=== PATIENT | female | born 1950 | race Caucasian/White ===

== ENCOUNTER 2017-11-27 17:29 | Inpatient (IN) | payer MEDICARE, MEDICAID ==
--- NOTE | 2017-11-27 17:57 | ED Physician Chart ---
ED Chief Complaint/HPI - Patient Information Date Seen:: 11/27/17 Time Seen:: 17:56 Chief Complaint:: PSYCHOSIS History of Present Illness:: THIS IS A 67 YR OLD FEMALE SENT FORM THE [facility] FOR EVALUATION AND TREATMENT OF HER MENTAL DISORDER. Allergies:: Allergies Allergy/AdvReac Type Severity Reaction Status Date / Time No Known Allergies Allergy Verified 11/27/17 17:45 Vitals:: Vital Signs - 8 hr 11/27/17 17:46 Temp 97.4 F HR 81 RR 18 BP 123/70 O2 Sat % 98 Historian:: Medical Records Review:: Nurse's Note Reviewed, Old Chart Reviewed ED Review of Systems - Review of Systems General/Constitutional: No fever, No chills, No weight loss, No weakness, No diaphoresis, No edema, No loss of appetite, Other (this patient is unable to give a review of systems) Skin: No skin lesions, No rash, No bruising Head: No headache, No light-headedness Eyes: No loss of vision, No pain, No diplopia ENT: No earache, No nasal drainage, No sore throat, No tinnitus Neck: No neck pain, No swelling, No thyromegaly, No stiffness, No mass noted Cardio Vascular: No chest pain, No palpitations, No PND, No orthopnea, No edema Pulmonary: No SOB, No cough, No sputum, No wheezing GI: No nausea, No vomiting, No diarrhea, No pain, No melena, No hematochezia, No constipation, No hematemesis G/U: No dysuria, No frequency, No hematuria Musculoskeletal: No bone or joint pain, No back pain, No muscle pain Endocrine: No polyuria, No polydipsia Psychiatric: No prior psych history, No depression, No anxiety, No suicidal ideation Hematopoietic: No bruising, No lymphadenopathy Allergic/Immuno: No urticaria, No angioedema Neurological: No syncope, No focal symptoms, No weakness, No paresthesia, No headache, No seizure, No dizziness, No confusion, No vertigo ED Past Medical History - Past Medical History Obtainable: Yes Past Medical History: CAD, Asthma/COPD, Thyroid disorder, Arthritis, Dementia Family History: None Social History: Non Smoker, No Alcohol, No Drug Use, Care Facility Surgical History: None Psychiatricy History: Schizophrenia, Dementia Medication: Reviewed Family Medical History - Family Member Father History Unknown: Yes Ethnicity: Living Status: Hx Family Diabetes: Yes ED Physical Exam - Physical Examination General/Constitutional: Awake, Well-developed, well-nourished, Alert, No distress, GCS 15, Non-toxic appearing, Ambulatory Head: Atraumatic Eyes: Lids, conjuctiva normal, PERRL, EOMI Skin: Nl inspection, No rash, No skin lesions, No ecchymosis, Well hydrated, No lymphadenopathy ENMT: External ears, nose nl, Nasal exam nl, Lips, teeth, gums nl Neck: Nontender, Full ROM w/o pain, No JVD, No nuchal rigidity, No bruit, No mass, No stridor Respiratory: Nl effort/Exclusion, Clear to Auscultation, No Wheeze/Rhonchi/Rales Cardio Vascular: RRR, No murmur, gallop, rubs, NL S1 S2 GI: No tenderness/rebounding/guarding, No organomegaly, No hernia, Normal BS's, Nondistended, No mass/bruits, No McBurney tenderness : No CVA tenderness Extremities: No tenderness or effusion, Full ROM, normal strength in all extremities, No edema, Normal digits & nails Neuro/Psych: Alert/oriented, DTR's symmetric, Normal sensory exam, Normal motor strength, Judgement/insight normal, Mood normal, Normal gait, No focal deficits Misc: Normal back, No paraspinal tenderness ED Labs/Radiology/EKG Results - Lab Results Results: Abnormal Lab Results 11/27/17 11/27/17 11/27/17 18:00 18:08 18:08 WBC 11.3 H RBC 4.41 Hgb 12.9 Hct 38.9 L MCV 88.3 MCH 29.3 MCHC Differential 33.2 RDW 13.8 Plt Count 275 MPV 7.6 Neutrophils % 60.1 Lymphocytes % 29.0 Monocytes % 5.9 Eosinophils % 4.4 Basophils % 0.6 Sodium 137 Potassium 4.2 Chloride 103 Carbon Dioxide 25.1 Anion Gap 13.1 BUN 29 H Creatinine 1.5 H Est GFR ( Amer) 44.4 Est GFR (Non-Af Amer) 36.7 BUN/Creatinine Ratio 19.3 Glucose 203 H Calcium 9.7 Total Bilirubin 0.2 L AST 11 L ALT 9 Alkaline Phosphatase 92 Troponin I Total Protein 7.7 Albumin 4.1 Globulin 3.6 Albumin/Globulin Ratio 1.1 Urine Source CLEAN C Urine Color YELLOW Urine Clarity HAZY Urine pH 6.0 Ur Specific [place] 1.010 Urine Protein NEGATIVE Urine Glucose (UA) NEGATIVE Urine Ketones NEGATIVE Urine Blood TRACE Urine Nitrate POSITIVE H Urine Bilirubin NEGATIVE Urine Urobilinogen 0.2 Ur Leukocyte Esterase LARGE H Urine RBC 2-5 Urine WBC 50-100 H Ur Epithelial Cells FEW Urine Bacteria 4+ H Valproic Acid 11/27/17 11/27/17 18:08 18:08 WBC RBC Hgb Hct MCV MCH MCHC Differential RDW Plt Count MPV Neutrophils % Lymphocytes % Monocytes % Eosinophils % Basophils % Sodium Potassium Chloride Carbon Dioxide Anion Gap BUN Creatinine Est GFR ( Amer) Est GFR (Non-Af Amer) BUN/Creatinine Ratio Glucose Calcium Total Bilirubin AST ALT Alkaline Phosphatase Troponin I < 0.01 L Total Protein Albumin Globulin Albumin/Globulin Ratio Urine Source Urine Color Urine Clarity Urine pH Ur Specific [place] Urine Protein Urine Glucose (UA) Urine Ketones Urine Blood Urine Nitrate Urine Bilirubin Urine Urobilinogen Ur Leukocyte Esterase Urine RBC Urine WBC Ur Epithelial Cells Urine Bacteria Valproic Acid 57.4 - EKG Interpretations EKG Time:: 18:00 Rate & Rhythm: rate = 90, sinus [place]: right axis Intervals: no ectopy seen ED Assessment - Assessment General Assessment: psychosis ED Septic Shock - . Is Septic Shock (SBP<90, OR Lactate>4 mmol\L) present?: No - <6hrs of presentation: Vital Signs: Vital Signs - 8 hr 11/27/17 17:46 Temp 97.4 F HR 81 RR 18 BP 123/70 O2 Sat % 98 ED Reassessment (Disposition) - Reassessment Reassessment Condition:: Unchanged - Diagnosis Diagnosis:: psychosis urinary tract infection - Patient Disposition Discharge/Transfer:: Acute Care w/in this hosp Admitting Medical Physician:: Rodger Greene Admitting Psych Physician:: Raisa Junior Condition at Disposition:: Unchanged
[2017-11-27 18:02] LABS: URINE SOURCE CLEAN C
[2017-11-27 18:04] LABS: URINE BILIRUBIN NEGATIVE (NEGATIVE); URINE BLOOD TRACE (NEGATIVE); URINE GLUCOSE (UA) NEGATIVE (NEGATIVE); URINE KETONE NEGATIVE (NEGATIVE); URINE LEUKOCYTE ESTERASE LARGE (NEGATIVE); URINE MICROSCOPIC INDICATED? YES; URINE NITRATE POSITIVE (NEGATIVE); URINE PROTEIN NEGATIVE (NEGATIVE); URINE UROBILINOGEN 0.2 E.U./dL (0.2 - 1.0)
[2017-11-27 18:19] LABS: % BASOPHILS 0.6 % (0.0-2.0); % EOSINOPHILS 4.4 % (0.0-5.0); % MONOCYTES 5.9 % (2.0-10.0); % NEUTROPHILS 60.1 % (40.0-80.0); BASOPHILE ABSOLUTE 0.1 Th/cumm (0-0.2); EOSINOPHILE ABSOLUTE 0.5 Th/cmm (0.1-0.4); HEMATOCRIT 38.9 % (41.0-60); HEMOGLOBIN 12.9 gm/dL (12-16); LYMPHOCYTE ABSOLUTE 3.3 Th/cmm (1.5-3.0); MEAN CELL VOLUME 88.3 fl (81-100); MEAN CORPUSCULAR HEMOGLOBIN 29.3 pg (27.0-31.0); MEAN CORPUSCULAR HGB CONC 33.2 pg (28.0-36.0); MEAN PLATELET VOLUME 7.6 fl; MONOCYTE ABSOLUTE 0.7 Th/cmm (0.3-1.0); NEUTROPHILE ABSOLUTE 6.7 Th/cmm (1.8-8.0); PLATELET COUNT 275 Th/cmm (150-400); RED BLOOD COUNT 4.41 Mil/cmm (3.80-5.20); RED CELL DISTRIBUTION WIDTH 13.8 % (11.5-20.0); WHITE BLOOD COUNT 11.3 Th/cmm (4.8-10.8)
[2017-11-27 18:32] LABS: URINE CLARITY HAZY (CLEAR); URINE COLOR YELLOW
[2017-11-27 18:33] LABS: VALPROIC ACID 57.4 ug/mL (50.0-100.0)
[2017-11-27 18:36] LABS: ALB/GLOB RATIO 1.1 (1.0-1.8); ALBUMIN 4.1 gm/dL (3.7-5.3); ANION GAP 13.1 (7.0-16.0); BILIRUBIN,TOTAL 0.2 mg/dL (0.3-1.0); CALCIUM SERUM 9.7 mg/dL (8.6-10.3); CARBON DIOXIDE 25.1 mEq/L (21.0-31.0); CREATININE - SERUM 1.5 mg/dL (0.6-1.2); GFR AFRICAN-AMERICAN 44.4 ml/min (>90); GFR NON AFRICAN-AMERICAN 36.7 ml/min; POTASSIUM SERUM 4.2 mEq/L (3.5-5.1); TOTAL PROTEIN,SERUM 7.7 gm/dL (6.0-8.3)
[2017-11-27 18:45] LABS: URINE BACTERIA 4+ /hpf (NONE SEEN); URINE EPITHELIAL CELLS FEW /lpf (FEW); URINE WBC 50-100 /hpf (0-5)
[2017-11-27 20:04] VITALS: BP 140/77
[2017-11-27 20:32] LABS: CHOLESTEROL 204 mg/dL (<200); HDL -HIGH DENSITY LIPOPROTEIN 36 mg/dL (23-92); TRIGLYCERIDES 428 mg/dL (<150)
[2017-11-28] MEDS: Levothyroxine 0.075 Mg Tab PO SCH (07:01)
--- NOTE | 2017-11-28 10:45 | Diagnostic Imaging Report ---
Chest x-ray single view History: Seizure Comparison: 05/03/2013 The heart size is normal. No focal pulmonary parenchymal processes. No hilar or mediastinal abnormalities. Impression: No acute abnormalities
--- NOTE | 2017-11-28 12:51 | Psychiatric Evaluation ---
DATE OF SERVICE: 11/27/2017 IDENTIFYING DATA: The patient is a 67-year-old woman admitted to the unit from [facility] due to increase in agitation and irritability and aggressive behavior. Staff was spoken to. The patient is interviewed. During the interview, the patient has been answering the questions with questions, stating that I should know why she is in here. The patient has been very agitated and confused when I am asking the questions. The patient is a Brazilian speaking, primarily. Sleep is noted to be poor. Appetite is noted to be fair. The patient has been having difficult time to cope with the stress. The patient is getting easily irritable and angry. Prior to the hospitalization, the patient is reported to have been on valproic acid and olanzapine. The patient's compliance with the medication is noted to be poor. PAST PSYCHIATRIC HISTORY: Details are not known. MEDICAL HISTORY: Physical examination is requested to be done by Dr. Greene. SUBSTANCE ABUSE HISTORY: None. PHYSICAL OR SEXUAL ABUSE HISTORY: None. LEGAL PROBLEMS: None at this time. STRENGTH AND ASSETS: The patient is motivated. MENTAL STATUS EXAMINATION: The patient is a 67-year-old woman looking older than her stated age. Gait is noted to be normal. Speech is noted to be coherent, but is irrelevant. The patient is speaking only in Brazilian. The patient's insight and judgment at this time are noted to be very much impaired. Impulse control is noted to be limited. Attention span and concentration are noted to be poor. Short and long-term are noted to be impaired. The patient is able to verbalize the concerns that she is agitated when asked about the reasons why she is in here. She is answering the questions saying that "I should know why she is here." The patient's behavior is likely danger to self and others at this time. DIAGNOSTIC IMPRESSION: AXIS I: Psychotic disorder, not otherwise specified. AXIS II: None. AXIS III: As per Dr. Greene. IMMEDIATE TREATMENT PLAN: The patient is going to be observed on the inpatient unit, provided with supportive psychotherapy. The patient is continued with the Zyprexa and Depakote. ESTIMATED LENGTH OF STAY: 3-5 days. DISCHARGE CRITERIA: When she no longer a threat to self or others and be able to cope up with the stress. JOB# [id number]
[2017-11-29] MEDS: Levothyroxine 0.075 Mg Tab PO SCH (06:49)
--- NOTE | 2017-11-29 18:02 | Consultation ---
DATE OF CONSULTATION: 11/29/2017 REFERRING PHYSICIAN: Raisa Junior M.D. TYPE OF CONSULTATION: Psychology. HISTORY OF PRESENT ILLNESS: The patient is a 67-year-old female. The patient is mostly Danish speaking. Therefore, a Danish speaking staff member provided interpretation for this clinical interview. The following is by record review and by the patient's self report. The patient is being admitted from [facility] due to increased agitation as well as aggressive behavior. The patient did not provide relevant answers. During the clinical interview, the patient seemed to get easily agitated and was very confused. The patient denied any suicidal ideation, plan or intention. PAST MEDICAL HISTORY: Please see history and physical by Dr. Greene. PAST PSYCHIATRIC HISTORY: Records are unavailable. History is unknown. SUBSTANCE ABUSE HISTORY: History is unknown. PSYCHOSOCIAL HISTORY: The patient did not answer questions about occupational or educational history or hindu affiliation. She did not answer questions about history of physical or sexual abuse or current legal problems. The patient did not answer questions about family relationships, family history, marital status, children or any other type of support system. MENTAL STATUS EXAMINATION: The patient appears to be older than her stated age. The patient's attitude is guarded and suspicious. Speech is normal; however, the patient's answers are irrelevant and at times incoherent. Eye contact is poor. Mood is irritable. Affect is constricted. The patient denied any auditory or visual hallucinations. The patient did not answer questions about suicidal ideation. The patient's behavior on the unit has been difficult to redirect according to the staff. Impulse control is limited. Concentration is poor. The patient was unable to sustain focus or attention in any kind of coherent manner and was not cognitively redirectable. There are multiple cognitive deficits. The patient's memory is impaired. The patient was unable to repeat 3 items given to her the first time or recall any of the items after several minutes. The patient's sensorium is alert and oriented to self only. The patient did not participate in the interpretation of proverbs. Insight is impaired. Judgment is impaired. DIAGNOSTIC IMPRESSION: AXIS I: Psychotic disorder, not otherwise specified. AXIS II: Deferred. AXIS III: Per Dr. Greene. TREATMENT PLAN: The patient has been seen by Dr. Junior for psychiatric evaluation and for the management of the patient's psychotropic medications. We will provide supportive psychotherapy to include reality orientation, differentiation and integration. We will provide coping strategies for phase of life issues. We will provide motivational enhancement for the patient to become compliant and stay compliant with all aspects of her care and treatment. We will provide de-escalation as well as simple anger management skills for the patient to decrease her stress level and increase her frustration tolerance. We will provide the opportunity and encourage the patient to be able to demonstrate emotional and self-regulation prior to her discharge. Thank you, Dr. Junior, for this consult and the opportunity to participate in this patient's care. JOB# [id number] MARIE
--- NOTE | 2017-11-29 18:10 | History & Physical ---
ADMIT DATE: 11/27/2017 HISTORY OF PRESENT ILLNESS: This patient came to the Emergency Room for senior mental health examination, the patient was cleared, admitted for Mental Health Unit. She is a 67-year-old female. The [facility] because of the psychosis and very agitation. REVIEW OF SYSTEMS: Negative. PAST MEDICAL HISTORY: Asthma, thyroid disorder, arthritis, dementia, and coronary artery disease. PHYSICAL EXAMINATION: GENERAL: The patient is awake, alert, well-nourished. HEAD: Normal. ENT: Normal. NECK: Supple, nontender. LUNGS: Clear. CARDIOVASCULAR SYSTEM: S1, S2 heard. ABDOMEN: Soft. Bowel sounds are heard. CENTRAL NERVOUS SYSTEM: Grossly normal. LABORATORY DATA: WBC count was slightly high at 11.3 and she has a urine nitrite was positive, leukocyte esterase was large indicating UTI. DIAGNOSES: Acute psychosis, acute urinary tract infection, right axis deviation on EKG. I will follow the patient and we will give her Levaquin 500 mg p.o. daily. I will have Dr. Martínez come and see the patient. JOB# [id number]
--- NOTE | 2017-11-30 00:04 | Progress Notes ---
DATE: 11/29/2017 SUBJECTIVE: Staff was spoken to. The patient is interviewed. Mood is noted to be irritable. Affect is constricted. Coping skills are noted to be poor. The patient has been isolative and withdrawn. Insight and judgment are noted to be still impaired. The patient has been closely monitored for aggressive and agitated behavior. The patient is currently on 5 mg of the olanzapine and has been able to tolerate. ASSESSMENT: The patient is still psychotic. PLAN: To continue the patient with the current medications and followup. [facility]# [id number]
[2017-11-30] MEDS: Levothyroxine 0.075 Mg Tab PO SCH (06:55)
--- NOTE | 2017-11-30 12:23 | Internal Medicine Prog Note ---
Internal Medicine Subjective - Subjective Service Date: 11/30/17 Patient seen and examined:: with staff Patient is:: awake Per staff patient has:: tolerating meds Internal Medicine Objective - Results Result Diagrams: 11/27/17 18:08 11/27/17 18:08 Recent Labs: Laboratory Last Values WBC 11.3 Th/cmm (4.8-10.8) H 11/27/17 18:08 RBC 4.41 Mil/cmm (3.80-5.20) 11/27/17 18:08 Hgb 12.9 gm/dL (12-16) 11/27/17 18:08 Hct 38.9 % (41.0-60) L 11/27/17 18:08 MCV 88.3 fl (81-100) 11/27/17 18:08 MCH 29.3 pg (27.0-31.0) 11/27/17 18:08 MCHC Differential 33.2 pg (28.0-36.0) 11/27/17 18:08 RDW 13.8 % (11.5-20.0) 11/27/17 18:08 Plt Count 275 Th/cmm (150-400) 11/27/17 18:08 MPV 7.6 fl 11/27/17 18:08 Neutrophils % 60.1 % (40.0-80.0) 11/27/17 18:08 Lymphocytes % 29.0 % (20.0-50.0) 11/27/17 18:08 Monocytes % 5.9 % (2.0-10.0) 11/27/17 18:08 Eosinophils % 4.4 % (0.0-5.0) 11/27/17 18:08 Basophils % 0.6 % (0.0-2.0) 11/27/17 18:08 Sodium 137 mEq/L (136-145) 11/27/17 18:08 Potassium 4.2 mEq/L (3.5-5.1) 11/27/17 18:08 Chloride 103 mEq/L (98-107) 11/27/17 18:08 Carbon Dioxide 25.1 mEq/L (21.0-31.0) 11/27/17 18:08 Anion Gap 13.1 (7.0-16.0) 11/27/17 18:08 BUN 29 mg/dL (7-25) H 11/27/17 18:08 Creatinine 1.5 mg/dL (0.6-1.2) H 11/27/17 18:08 Est GFR ( Amer) 44.4 ml/min (>90) 11/27/17 18:08 Est GFR (Non-Af Amer) 36.7 ml/min 11/27/17 18:08 BUN/Creatinine Ratio 19.3 11/27/17 18:08 Glucose 203 mg/dL (70-105) H 11/27/17 18:08 Calcium 9.7 mg/dL (8.6-10.3) 11/27/17 18:08 Total Bilirubin 0.2 mg/dL (0.3-1.0) L 11/27/17 18:08 AST 11 U/L (13-39) L 11/27/17 18:08 ALT 9 U/L (7-52) 11/27/17 18:08 Alkaline Phosphatase 92 U/L (34-104) 11/27/17 18:08 Troponin I < 0.01 ng/mL (0.01-0.05) L 11/27/17 18:08 Total Protein 7.7 gm/dL (6.0-8.3) 11/27/17 18:08 Albumin 4.1 gm/dL (3.7-5.3) 11/27/17 18:08 Globulin 3.6 gm/dL 11/27/17 18:08 Albumin/Globulin Ratio 1.1 (1.0-1.8) 11/27/17 18:08 Triglycerides 428 mg/dL (<150) H 11/27/17 18:08 Cholesterol 204 mg/dL (<200) H 11/27/17 18:08 LDL Cholesterol Direct 115 mg/dL (75-193) 11/27/17 18:08 HDL Cholesterol 36 mg/dL (23-92) 11/27/17 18:08 TSH 1.30 uIU/ml (0.34-5.60) 11/27/17 18:08 Urine Source CLEAN C 11/27/17 18:00 Urine Color YELLOW 11/27/17 18:00 Urine Clarity HAZY (CLEAR) 11/27/17 18:00 Urine pH 6.0 (4.6 - 8.0) 11/27/17 18:00 Ur Specific [place] 1.010 (1.005-1.030) 11/27/17 18:00 Urine Protein NEGATIVE mg/dL (NEGATIVE) 11/27/17 18:00 Urine Glucose (UA) NEGATIVE mg/dL (NEGATIVE) 11/27/17 18:00 Urine Ketones NEGATIVE mg/dL (NEGATIVE) 11/27/17 18:00 Urine Blood TRACE (NEGATIVE) 11/27/17 18:00 Urine Nitrate POSITIVE (NEGATIVE) H 11/27/17 18:00 Urine Bilirubin NEGATIVE (NEGATIVE) 11/27/17 18:00 Urine Urobilinogen 0.2 E.U./dL (0.2 - 1.0) 11/27/17 18:00 Ur Leukocyte Esterase LARGE (NEGATIVE) H 11/27/17 18:00 Urine RBC 2-5 /hpf (0-5) 11/27/17 18:00 Urine WBC 50-100 /hpf (0-5) H 11/27/17 18:00 Ur Epithelial Cells FEW /lpf (FEW) 11/27/17 18:00 Urine Bacteria 4+ /hpf (NONE SEEN) H 11/27/17 18:00 Valproic Acid 57.4 ug/mL (50.0-100.0) 11/27/17 18:08 - Physical Exam Vitals and I&O: Vital Signs Temp 97.8 F 11/30/17 05:56 Pulse 72 11/30/17 05:56 Resp 19 11/30/17 05:56 BP 117/54 11/30/17 05:56 Pulse Ox 96 11/30/17 05:56 Intake & Output 11/29/17 11/30/17 11/30/17 18:59 06:59 18:59 Intake Total 480 Balance 480 Intake: Oral 480 Other: # Voids 2 # Bowel Movements 1 1 Stool Characteristics Soft Soft Active Medications: Current Medications Acetaminophen (Tylenol) 650 mg PO Q4HR PRN PRN Reason: Pain (Mild) Stop: 01/26/18 20:10 Divalproex Sodium (Depakote Dr) 250 mg PO BID [facility]; Protocol Stop: 01/27/18 08:59 Last Admin: 11/30/17 09:42 Dose: 250 mg Famotidine (Pepcid) 20 mg PO QDAC [facility] Stop: 12/06/18 07:29 Last Admin: 11/30/17 06:55 Dose: 20 mg Levofloxacin (Levaquin) 500 mg PO DAILY FABIO Stop: 01/28/18 16:29 Last Admin: 11/30/17 09:42 Dose: 500 mg Levothyroxine Sodium (Synthroid) 0.075 mg PO QDAC FABIO Stop: 01/27/18 07:29 Last Admin: 11/30/17 06:55 Dose: 0.075 mg Lorazepam (Ativan) 0.5 mg PO Q6HR PRN; Protocol PRN Reason: Agitation Stop: 01/26/18 20:21 Memantine (Namenda) 10 mg PO BID FABIO Stop: 01/27/18 08:59 Last Admin: 11/30/17 09:42 Dose: 10 mg Metoprolol Tartrate (Lopressor) 12.5 mg PO BID FABIO Stop: 01/27/18 08:59 Last Admin: 11/30/17 09:43 Dose: Not Given Olanzapine (Zyprexa) 5 mg PO HS FABIO; Protocol Stop: 01/26/18 20:59 Last Admin: 11/29/17 20:47 Dose: 5 mg Terbutaline Sulfate (Brethine) 2.5 mg PO BID FABIO Stop: 01/27/18 08:59 Last Admin: 11/30/17 09:43 Dose: Not Given Zolpidem Tartrate (Ambien) 5 mg PO HS PRN PRN Reason: Insomnia Stop: 01/26/18 20:19 Last Admin: 11/29/17 20:47 Dose: 5 mg General: alert HEENT: NC/AT, PERRLA Neck: Supple Lungs: CTAB Cardiovascular: RRR, Normal S1, Normal S2, without murmur Abdomen: soft, non-tender, non-distended, positive bowel sound Neurological: alert - Procedures Procedures: Procedures Procedure Code Date INDIVID PSYCHOTHERAP NEC 94.39 04/06/12 OTHER GROUP THERAPY 94.44 06/28/13 RECREATIONAL THERAPY 93.81 12/09/11 Internal Medicine Assmt/Plan - Assessment Assessment: acute psychosis acute uti right axis deviation on ekg - Plan Plan: cpm Nutritional Asmnt/Malnutr-PDOC - Dietary Evaluation Malnutrition Findings (Please click <Entered> for more info): Nutritional Asmnt/Malnutrition Start: 11/29/17 13: 51 Text: Status: Complete Freq: Protocol: Document 10/08/18 13:51 NELLI (Rec: 11/29/17 14:12 NELLI [email or web address]) Nutritional Asmnt/Malnutrition Patient General Information Nutritional Screening High Risk Diagnosis increased agitation Pertinent Medical Hx/Surgical Hx CAD, asthma, COPD, thyroid disorder, arthritis, dementia, schizophrenia Subjective Information Pt eating lunch in room and speaking w/ social work specialist at time of visit. Comoran speaking; social work specialist helped translate. Pt states she dislikes pork, but will eat everything else. Nursing noted intake: 100%. Current Diet Order/ Nutrition Support Mech Soft Chopped, GONZÁLEZ, thin liquid Pertinent Medications pepcid, synthroid Pertinent Labs 11/27: glucose 203, BUN 29, Cr 1.5, triglycerides 428, cholesterol 204 Nutritional Hx/Data Height 5 ft 2 in Height (Calculated Centimeters) 157.5 Current Weight (lbs) 165 lb Weight (Calculated Kilograms) 74.8 Weight (Calculated Grams) 50724.7 [place] Body Weight 110 lb Body Mass Index (BMI) 30.2 Weight Status Obese GI Symptoms GI Symptoms None Last BM none noted Difficult in: None Food Allergies No Skin Integrity/Comment: intact Current %PO Good (75-100%) Estimated Nutritional Goals BEE in Kcals: Using Current wt Calories/Kcals/Kg 22-27 Kcals Calculated [id number] Protein: Using Current wt Protein g/k.8-1 Protein Calculated 60-75 g Fluid: ml [id number] (1 ml/kcal) Nutritional Problem 1. Problem Problem Altered nutrition related labs Etiology hx of CAD Signs/Symptoms: triglycerides 428, cholesterol 204 Malnutrition Alert Is there a minimum of two criteria No selected? Query Text:Check all the applicable criteria. A minimum of two criteria are recommended for diagnosis of either severe or non-severe malnutrition. Malnutrition Related to Morbid Obesity Malnutrition related to morbid obesity No Intervention/Recommendation Comments 1. Recommend to add cardiac diet to current diet order. Consider starting CCHO diet if glucose labs remain high. 2. Monitor PO intake, wt, labs and skin integrity 3. F/U as moderate risk in 3-5 days, 12/02-12/04 Expected Outcomes/Goals Expected Outcomes/Goals 1. PO intake to meet at least 75% of nutritional needs. 2. Wt stability, skin to remain intact, nutrition related labs to approach normal limits Reviewed by Yuridia Cam RD
--- NOTE | 2017-11-30 23:47 | Progress Notes ---
DATE: 11/30/2017 PSYCHIATRIC PROGRESS NOTE SUBJECTIVE: Staff was spoken to. The patient is interviewed. Mood is noted to be irritable. Affect is constricted. Insight and judgment are noted to be still impaired. The patient tends to scream and yell. The patient has no insight into her illness. No side effects to the medications are noted at this time. ASSESSMENT: The patient is still psychotic and impulsive. PLAN: To continue the patient with the supportive therapy and followup. [facility]# [id number]
[2017-12-01] MEDS: Levothyroxine 0.075 Mg Tab PO SCH (06:39)
--- NOTE | 2017-12-01 13:14 | Consultation ---
Consult Note - Consult Note Service Date: 12/01/17 Referring Physician: Rodger Greene Consult Note: PHYSICIAN Consultation Note: Date of Admission: 11/27/17 Purpose of Consultation: UTI Chief Complaint: Patient KEITH MCGREGOR was admitted to [place] [address] with PSYCHOSIS. History of Present Illness:59-year-old female admitted to geropsychiatric unit for psychosis. Incidentally she was found to have UTI and Levaquin was started. ID consult was called for further antibiotic management. Past Medical History: Psychosis. Allergies Allergy/AdvReac Type Severity Reaction Status Date / Time No Known Allergies Allergy Verified 11/27/17 17:45 Vital Signs Temp 98.1 F 12/01/17 06:27 Pulse 70 12/01/17 09:13 Resp 18 12/01/17 06:27 BP 126/72 12/01/17 09:13 Pulse Ox 96 12/01/17 06:27 Intake & Output 11/30/17 12/01/17 12/01/17 18:59 06:59 18:59 Intake Total 240 Balance 240 Intake: Oral 240 Other: # Voids 3 Stool Characteristics Soft Home Medication Medication Instructions Recorded Type Acetaminophen [Tylenol] 650 mg PO Q4HR PRN 06/28/13 History Divalproex Sodium [Depakote] 250 mg PO BID 06/28/13 History Levothyroxine Sodium 75 mcg PO QDAC 06/28/13 History Memantine [Namenda] 10 mg PO BID 06/28/13 History Metoprolol Tartrate [Lopressor] 12.5 mg PO BID 06/28/13 History Terbutaline Sulfate [Brethine] 2.5 mg PO BID 06/28/13 History Famotidine [Pepcid] 20 mg PO QDAC 11/27/17 History OLANZapine [ZyPREXA] 5 mg PO HS 11/27/17 History Current Medications Generic Name Dose Route Start Last Admin Trade Name Freq PRN Reason Stop Dose Admin Acetaminophen 650 mg 11/27/17 20:11 Tylenol PO 01/26/18 20:10 Q4HR PRN Pain (Mild) Divalproex Sodium 250 mg 11/28/17 09:00 12/01/17 09:[address] PO 01/27/18 08:59 250 mg BID FABIO Administration Protocol Famotidine 20 mg 11/28/17 07:30 12/01/17 06:39 Pepcid PO 01/27/18 07:29 20 mg QDAC FABIO Administration Levofloxacin 500 mg 11/29/17 16:30 12/01/17 09:14 Levaquin PO 01/28/18 16:29 500 mg DAILY FABIO Administration Levothyroxine Sodium 0.075 mg 11/28/17 07:30 12/01/17 06:39 Synthroid PO 01/27/18 07:29 0.075 mg QDAC FABIO Administration Lorazepam 0.5 mg 11/27/17 20:22 11/30/17 20:50 Ativan PO 01/26/18 20:21 0.5 mg Q6HR PRN Administration Agitation Protocol Memantine 10 mg 11/28/17 09:00 12/01/17 09:15 Namenda PO 01/27/18 08:59 10 mg BID FABIO Administration Metoprolol Tartrate 12.5 mg 11/28/17 09:00 12/01/17 09:13 Lopressor PO 01/27/18 08:59 12.5 mg BID FABIO Administration Olanzapine 5 mg 11/27/17 21:00 11/30/17 20:51 Zyprexa PO 01/26/18 20:59 5 mg HS FABIO Administration Protocol Terbutaline Sulfate 2.5 mg 11/28/17 09:00 11/30/17 18:09 Brethine PO 01/27/18 08:59 Not Given BID FABIO Zolpidem Tartrate 5 mg 11/27/17 20:20 11/30/17 20:51 Ambien PO 01/26/18 20:19 5 mg HS PRN Administration Insomnia Review of Systems: A 12 point ROS was reviewed with the pertinent positive and negatives noted in the HPI. Social History Smoking Status Never smoker Drug Use No Alcohol Use No Family Medical History Family Medical History Start: 11/27/17 20: 02 Freq: ONCE Status: Active Protocol: Document 11/27/17 20:02 GRISEL (Rec: 11/28/17 00:27 GRISEL ALEXANDRA ) Family Medical History Father History Unknown Yes Age 68 Ethnicity Living Status Unknown Hx Family Cancer No Hx Family Coronary Artery Disease No Hx Family Congestive Heart Failure No Hx Family Hypertension No Hx Family Stroke No Hx Family Diabetes No Hx Family Seizures No Hx Family Dementia No Hx Family AIDS No Hx Family HIV No Hx Family COPD No Hx Family Hepatitis No Hx Family Psychiatric Problems No Hx Family Tuberculosis No Physical Exam: General: Comfortable, not in acute distress. HEENT: Head: Normocytic, atraumatic. Oropharynx: Moist, pink tongue. Eyes: Pallor is present icterus. PERRLA. Neck: Supple, no rigidity. no use of accessory muscles Cardio: S1 and S2 within normal metabolism normal murmur or gallop. Respiratory: CTAP Abdominal: Soft, nontender nondistended bowel sounds present Genital/Urinary: Extremities: No sinus no clubbing no edema Neurological: Alert, awake, oriented 3. Assessment: 1. UTI. 2. Psychosis. Plan: Continue Levaquin. Signed, Al Martínez M.D. [id number]
--- NOTE | 2017-12-01 16:48 | Internal Medicine Prog Note ---
Internal Medicine Subjective - Subjective Patient is:: awake Per staff patient has:: tolerating meds Internal Medicine Objective - Results Result Diagrams: 11/27/17 18:08 11/27/17 18:08 Recent Labs: Laboratory Last Values WBC 11.3 Th/cmm (4.8-10.8) H 11/27/17 18:08 RBC 4.41 Mil/cmm (3.80-5.20) 11/27/17 18:08 Hgb 12.9 gm/dL (12-16) 11/27/17 18:08 Hct 38.9 % (41.0-60) L 11/27/17 18:08 MCV 88.3 fl (81-100) 11/27/17 18:08 MCH 29.3 pg (27.0-31.0) 11/27/17 18:08 MCHC Differential 33.2 pg (28.0-36.0) 11/27/17 18:08 RDW 13.8 % (11.5-20.0) 11/27/17 18:08 Plt Count 275 Th/cmm (150-400) 11/27/17 18:08 MPV 7.6 fl 11/27/17 18:08 Neutrophils % 60.1 % (40.0-80.0) 11/27/17 18:08 Lymphocytes % 29.0 % (20.0-50.0) 11/27/17 18:08 Monocytes % 5.9 % (2.0-10.0) 11/27/17 18:08 Eosinophils % 4.4 % (0.0-5.0) 11/27/17 18:08 Basophils % 0.6 % (0.0-2.0) 11/27/17 18:08 Sodium 137 mEq/L (136-145) 11/27/17 18:08 Potassium 4.2 mEq/L (3.5-5.1) 11/27/17 18:08 Chloride 103 mEq/L (98-107) 11/27/17 18:08 Carbon Dioxide 25.1 mEq/L (21.0-31.0) 11/27/17 18:08 Anion Gap 13.1 (7.0-16.0) 11/27/17 18:08 BUN 29 mg/dL (7-25) H 11/27/17 18:08 Creatinine 1.5 mg/dL (0.6-1.2) H 11/27/17 18:08 Est GFR ( Amer) 44.4 ml/min (>90) 11/27/17 18:08 Est GFR (Non-Af Amer) 36.7 ml/min 11/27/17 18:08 BUN/Creatinine Ratio 19.3 11/27/17 18:08 Glucose 203 mg/dL (70-105) H 11/27/17 18:08 Calcium 9.7 mg/dL (8.6-10.3) 11/27/17 18:08 Total Bilirubin 0.2 mg/dL (0.3-1.0) L 11/27/17 18:08 AST 11 U/L (13-39) L 11/27/17 18:08 ALT 9 U/L (7-52) 11/27/17 18:08 Alkaline Phosphatase 92 U/L (34-104) 11/27/17 18:08 Troponin I < 0.01 ng/mL (0.01-0.05) L 11/27/17 18:08 Total Protein 7.7 gm/dL (6.0-8.3) 11/27/17 18:08 Albumin 4.1 gm/dL (3.7-5.3) 11/27/17 18:08 Globulin 3.6 gm/dL 11/27/17 18:08 Albumin/Globulin Ratio 1.1 (1.0-1.8) 11/27/17 18:08 Triglycerides 428 mg/dL (<150) H 11/27/17 18:08 Cholesterol 204 mg/dL (<200) H 11/27/17 18:08 LDL Cholesterol Direct 115 mg/dL (75-193) 11/27/17 18:08 HDL Cholesterol 36 mg/dL (23-92) 11/27/17 18:08 TSH 1.30 uIU/ml (0.34-5.60) 11/27/17 18:08 Urine Source CLEAN C 11/27/17 18:00 Urine Color YELLOW 11/27/17 18:00 Urine Clarity HAZY (CLEAR) 11/27/17 18:00 Urine pH 6.0 (4.6 - 8.0) 11/27/17 18:00 Ur Specific [place] 1.010 (1.005-1.030) 11/27/17 18:00 Urine Protein NEGATIVE mg/dL (NEGATIVE) 11/27/17 18:00 Urine Glucose (UA) NEGATIVE mg/dL (NEGATIVE) 11/27/17 18:00 Urine Ketones NEGATIVE mg/dL (NEGATIVE) 11/27/17 18:00 Urine Blood TRACE (NEGATIVE) 11/27/17 18:00 Urine Nitrate POSITIVE (NEGATIVE) H 11/27/17 18:00 Urine Bilirubin NEGATIVE (NEGATIVE) 11/27/17 18:00 Urine Urobilinogen 0.2 E.U./dL (0.2 - 1.0) 11/27/17 18:00 Ur Leukocyte Esterase LARGE (NEGATIVE) H 11/27/17 18:00 Urine RBC 2-5 /hpf (0-5) 11/27/17 18:00 Urine WBC 50-100 /hpf (0-5) H 11/27/17 18:00 Ur Epithelial Cells FEW /lpf (FEW) 11/27/17 18:00 Urine Bacteria 4+ /hpf (NONE SEEN) H 11/27/17 18:00 Valproic Acid 57.4 ug/mL (50.0-100.0) 11/27/17 18:08 - Physical Exam Vitals and I&O: Vital Signs Temp 98.4 F 12/01/17 14:32 Pulse 82 12/01/17 14:32 Resp 20 12/01/17 14:32 BP 119/55 12/01/17 14:32 Pulse Ox 96 12/01/17 06:27 Intake & Output 11/30/17 12/01/17 12/01/17 18:59 06:59 18:59 Intake Total 240 Balance 240 Intake: Oral 240 Other: # Voids 3 Stool Characteristics Soft Active Medications: Current Medications Acetaminophen (Tylenol) 650 mg PO Q4HR PRN PRN Reason: Pain (Mild) Stop: 01/26/18 20:10 Divalproex Sodium (Depakote Dr) 250 mg PO BID [facility]; Protocol Stop: 01/27/18 08:59 Last Admin: 12/01/17 09:15 Dose: 250 mg Famotidine (Pepcid) 20 mg PO QDAC [facility] Stop: 01/27/18 07:29 Last Admin: 12/01/17 06:39 Dose: 20 mg Levofloxacin (Levaquin) 500 mg PO DAILY [facility] Stop: 01/28/18 16:29 Last Admin: 12/01/17 09:14 Dose: 500 mg Levothyroxine Sodium (Synthroid) 0.075 mg PO QDAC FABIO Stop: 01/27/18 07:29 Last Admin: 12/01/17 06:39 Dose: 0.075 mg Lorazepam (Ativan) 0.5 mg PO Q6HR PRN; Protocol PRN Reason: Agitation Stop: 01/26/18 20:21 Last Admin: 11/30/17 20:50 Dose: 0.5 mg Memantine (Namenda) 10 mg PO BID FABIO Stop: 01/27/18 08:59 Last Admin: 12/01/17 09:15 Dose: 10 mg Metoprolol Tartrate (Lopressor) 12.5 mg PO BID FABIO Stop: 01/27/18 08:59 Last Admin: 12/01/17 09:13 Dose: 12.5 mg Olanzapine (Zyprexa) 5 mg PO HS FABIO; Protocol Stop: 01/26/18 20:59 Last Admin: 11/30/17 20:51 Dose: 5 mg Terbutaline Sulfate (Brethine) 2.5 mg PO BID FABIO Stop: 01/27/18 08:59 Last Admin: 11/30/17 18:09 Dose: Not Given Zolpidem Tartrate (Ambien) 5 mg PO HS PRN PRN Reason: Insomnia Stop: 01/26/18 20:19 Last Admin: 11/30/17 20:51 Dose: 5 mg General: alert HEENT: NC/AT, PERRLA Neck: Supple Lungs: CTAB Cardiovascular: RRR, Normal S1, Normal S2, without murmur Abdomen: soft, non-tender, non-distended, positive bowel sound Neurological: alert - Procedures Procedures: Procedures Procedure Code Date INDIVID PSYCHOTHERAP NEC 94.39 04/06/12 OTHER GROUP THERAPY 94.44 06/28/13 RECREATIONAL THERAPY 93.81 12/09/11 Nutritional Asmnt/Malnutr-PDOC - Dietary Evaluation Malnutrition Findings (Please click <Entered> for more info): Nutritional Asmnt/Malnutrition Start: 11/29/17 13: 51 Text: Status: Complete Freq: Protocol: Document 11/29/17 13:51 NELLI (Rec: 11/29/17 14:12 NELLI [place] Nutritional Asmnt/Malnutrition Patient General Information Nutritional Screening High Risk Diagnosis increased agitation Pertinent Medical Hx/Surgical Hx CAD, asthma, COPD, thyroid disorder, arthritis, dementia, schizophrenia Subjective Information Pt eating lunch in room and speaking w/ social work associate at time of visit. Hungarian speaking; social work associate helped translate. Pt states she dislikes pork, but will eat everything else. Nursing noted intake: 100%. Current Diet Order/ Nutrition Support Mech Soft Chopped, GONZÁLEZ, thin liquid Pertinent Medications pepcid, synthroid Pertinent Labs 11/27: glucose 203, BUN 29, Cr 1.5, triglycerides 428, cholesterol 204 Nutritional Hx/Data Height 1.57 m Height (Calculated Centimeters) 157.5 Current Weight (lbs) 74.843 kg Weight (Calculated Kilograms) 74.8 Weight (Calculated Grams) 12604.7 [place] Body Weight 110 lb Body Mass Index (BMI) 30.2 Weight Status Obese GI Symptoms GI Symptoms None Last BM none noted Difficult in: None Food Allergies No Skin Integrity/Comment: intact Current %PO Good (75-100%) Estimated Nutritional Goals BEE in Kcals: Using Current wt Calories/Kcals/Kg 22-27 Kcals Calculated 1923-5235 Protein: Using Current wt Protein g/k.8-1 Protein Calculated 60-75 g Fluid: ml 8389-9866 (1 ml/kcal) Nutritional Problem 1. Problem Problem Altered nutrition related labs Etiology hx of CAD Signs/Symptoms: triglycerides 428, cholesterol 204 Malnutrition Alert Is there a minimum of two criteria No selected? Query Text:Check all the applicable criteria. A minimum of two criteria are recommended for diagnosis of either severe or non-severe malnutrition. Malnutrition Related to Morbid Obesity Malnutrition related to morbid obesity No Intervention/Recommendation Comments 1. Recommend to add cardiac diet to current diet order. Consider starting CCHO diet if glucose labs remain high. 2. Monitor PO intake, wt, labs and skin integrity 3. F/U as moderate risk in 3-5 days, 12/02-12/04 Expected Outcomes/Goals Expected Outcomes/Goals 1. PO intake to meet at least 75% of nutritional needs. 2. Wt stability, skin to remain intact, nutrition related labs to approach normal limits Reviewed by Yuridia Cam RD
--- NOTE | 2017-12-02 02:34 | Progress Notes ---
DATE: 12/01/2017 SUBJECTIVE: Staff was spoken to. The patient is interviewed. Mood is noted to be irritable. Affect is constricted. Insight and judgment at this time are noted to be still impaired. Impulse control is noted to be limited. are noted to be limited. The patient has paranoid delusions, but denies any command hallucinations. No side effects to the medications are noted. The patient is still having difficult time to cope with the stress and hence it is decided to increase the dose on the medications that the Zyprexa to 7.5 mg at bedtime and follow the patient up. JOB# [id number]
[2017-12-02] MEDS: Levothyroxine 0.075 Mg Tab PO SCH (06:55)
--- NOTE | 2017-12-02 14:30 | Internal Medicine Prog Note ---
Internal Medicine Subjective - Subjective Patient is:: awake, other (was admitted with psychosis has uti on antibiotics ) Per staff patient has:: tolerating meds Internal Medicine Objective - Results Result Diagrams: 11/27/17 18:08 11/27/17 18:08 Recent Labs: Laboratory Last Values WBC 11.3 Th/cmm (4.8-10.8) H 11/27/17 18:08 RBC 4.41 Mil/cmm (3.80-5.20) 11/27/17 18:08 Hgb 12.9 gm/dL (12-16) 11/27/17 18:08 Hct 38.9 % (41.0-60) L 11/27/17 18:08 MCV 88.3 fl (81-100) 11/27/17 18:08 MCH 29.3 pg (27.0-31.0) 11/27/17 18:08 MCHC Differential 33.2 pg (28.0-36.0) 11/27/17 18:08 RDW 13.8 % (11.5-20.0) 11/27/17 18:08 Plt Count 275 Th/cmm (150-400) 11/27/17 18:08 MPV 7.6 fl 11/27/17 18:08 Neutrophils % 60.1 % (40.0-80.0) 11/27/17 18:08 Lymphocytes % 29.0 % (20.0-50.0) 11/27/17 18:08 Monocytes % 5.9 % (2.0-10.0) 11/27/17 18:08 Eosinophils % 4.4 % (0.0-5.0) 11/27/17 18:08 Basophils % 0.6 % (0.0-2.0) 11/27/17 18:08 Sodium 137 mEq/L (136-145) 11/27/17 18:08 Potassium 4.2 mEq/L (3.5-5.1) 11/27/17 18:08 Chloride 103 mEq/L (98-107) 11/27/17 18:08 Carbon Dioxide 25.1 mEq/L (21.0-31.0) 11/27/17 18:08 Anion Gap 13.1 (7.0-16.0) 11/27/17 18:08 BUN 29 mg/dL (7-25) H 11/27/17 18:08 Creatinine 1.5 mg/dL (0.6-1.2) H 11/27/17 18:08 Est GFR ( Amer) 44.4 ml/min (>90) 11/27/17 18:08 Est GFR (Non-Af Amer) 36.7 ml/min 11/27/17 18:08 BUN/Creatinine Ratio 19.3 11/27/17 18:08 Glucose 203 mg/dL (70-105) H 11/27/17 18:08 Calcium 9.7 mg/dL (8.6-10.3) 11/27/17 18:08 Total Bilirubin 0.2 mg/dL (0.3-1.0) L 11/27/17 18:08 AST 11 U/L (13-39) L 11/27/17 18:08 ALT 9 U/L (7-52) 11/27/17 18:08 Alkaline Phosphatase 92 U/L (34-104) 11/27/17 18:08 Troponin I < 0.01 ng/mL (0.01-0.05) L 11/27/17 18:08 Total Protein 7.7 gm/dL (6.0-8.3) 11/27/17 18:08 Albumin 4.1 gm/dL (3.7-5.3) 11/27/17 18:08 Globulin 3.6 gm/dL 11/27/17 18:08 Albumin/Globulin Ratio 1.1 (1.0-1.8) 11/27/17 18:08 Triglycerides 428 mg/dL (<150) H 11/27/17 18:08 Cholesterol 204 mg/dL (<200) H 11/27/17 18:08 LDL Cholesterol Direct 115 mg/dL (75-193) 11/27/17 18:08 HDL Cholesterol 36 mg/dL (23-92) 11/27/17 18:08 TSH 1.30 uIU/ml (0.34-5.60) 11/27/17 18:08 Urine Source CLEAN C 11/27/17 18:00 Urine Color YELLOW 11/27/17 18:00 Urine Clarity HAZY (CLEAR) 11/27/17 18:00 Urine pH 6.0 (4.6 - 8.0) 11/27/17 18:00 Ur Specific [place] 1.010 (1.005-1.030) 11/27/17 18:00 Urine Protein NEGATIVE mg/dL (NEGATIVE) 11/27/17 18:00 Urine Glucose (UA) NEGATIVE mg/dL (NEGATIVE) 11/27/17 18:00 Urine Ketones NEGATIVE mg/dL (NEGATIVE) 11/27/17 18:00 Urine Blood TRACE (NEGATIVE) 11/27/17 18:00 Urine Nitrate POSITIVE (NEGATIVE) H 11/27/17 18:00 Urine Bilirubin NEGATIVE (NEGATIVE) 11/27/17 18:00 Urine Urobilinogen 0.2 E.U./dL (0.2 - 1.0) 11/27/17 18:00 Ur Leukocyte Esterase LARGE (NEGATIVE) H 11/27/17 18:00 Urine RBC 2-5 /hpf (0-5) 11/27/17 18:00 Urine WBC 50-100 /hpf (0-5) H 11/27/17 18:00 Ur Epithelial Cells FEW /lpf (FEW) 11/27/17 18:00 Urine Bacteria 4+ /hpf (NONE SEEN) H 11/27/17 18:00 Valproic Acid 57.4 ug/mL (50.0-100.0) 11/27/17 18:08 - Physical Exam Vitals and I&O: Vital Signs Temp 97.5 F 12/02/17 06:00 Pulse 83 12/02/17 09:36 Resp 18 12/02/17 06:00 BP 115/67 12/02/17 09:36 Pulse Ox 98 12/02/17 06:00 Intake & Output 12/01/17 12/02/17 12/02/17 18:59 06:59 18:59 Intake Total 240 Balance 240 Intake: Oral 240 Other: # Voids 2 2 # Bowel Movements 0 Active Medications: Current Medications Acetaminophen (Tylenol) 650 mg PO Q4HR PRN PRN Reason: Pain (Mild) Stop: 01/26/18 20:10 Divalproex Sodium (Depakote Dr) 250 mg PO BID [facility]; Protocol Stop: 01/27/18 08:59 Last Admin: 12/02/17 09:36 Dose: 250 mg Famotidine (Pepcid) 20 mg PO QDAC [facility] Stop: 01/27/18 07:29 Last Admin: 12/02/17 06:55 Dose: 20 mg Levofloxacin (Levaquin) 500 mg PO DAILY [facility] Stop: 01/28/18 16:29 Last Admin: 12/02/17 09:36 Dose: 500 mg Levothyroxine Sodium (Synthroid) 0.075 mg PO QDAC FABIO Stop: 01/27/18 07:29 Last Admin: 12/02/17 06:55 Dose: 0.075 mg Lorazepam (Ativan) 0.5 mg PO Q6HR PRN; Protocol PRN Reason: Agitation Stop: 01/26/18 20:21 Last Admin: 12/01/17 20:49 Dose: 0.5 mg Memantine (Namenda) 10 mg PO BID [facility]IO Stop: 01/27/18 08:59 Last Admin: 12/02/17 09:34 Dose: 10 mg Metoprolol Tartrate (Lopressor) 12.5 mg PO BID [facility]ABIO Stop: 01/27/18 08:59 Last Admin: 12/02/17 09:36 Dose: Not Given Olanzapine (Zyprexa) 7.5 mg PO HS [facility]ABIO; Protocol Stop: 01/30/18 20:59 Last Admin: 12/01/17 20:48 Dose: 7.5 mg Terbutaline Sulfate (Brethine) 2.5 mg PO BID [facility]ABIO Stop: 01/27/18 08:59 Last Admin: 12/02/17 09:35 Dose: 2.5 mg Zolpidem Tartrate (Ambien) 5 mg PO HS PRN PRN Reason: Insomnia Stop: 01/26/18 20:19 Last Admin: 12/01/17 20:49 Dose: 5 mg General: alert HEENT: NC/AT, PERRLA Neck: Supple Lungs: CTAB Cardiovascular: RRR, Normal S1, Normal S2, without murmur Abdomen: soft, non-tender, non-distended, positive bowel sound Neurological: alert - Procedures Procedures: Procedures Procedure Code Date INDIVID PSYCHOTHERAP NEC 94.39 04/06/12 OTHER GROUP THERAPY 94.44 06/28/13 RECREATIONAL THERAPY 93.81 12/09/11 Internal Medicine Assmt/Plan - Plan Plan: continue antibiotics monitor vitals/diet labs as per psych Nutritional Asmnt/Malnutr-PDOC - Dietary Evaluation Malnutrition Findings (Please click <Entered> for more info): Nutritional Asmnt/Malnutrition Start: 11/29/17 13: 51 Text: Status: Complete Freq: Protocol: Document 11/29/17 13:51 NELLI (Rec: 11/29/17 14:12 NELLI GENTILE) Nutritional Asmnt/Malnutrition Patient General Information Nutritional Screening High Risk Diagnosis increased agitation Pertinent Medical Hx/Surgical Hx CAD, asthma, COPD, thyroid disorder, arthritis, dementia, schizophrenia Subjective Information Pt eating lunch in room and speaking w/ healthcare social worker at time of visit. Tajik speaking; healthcare social worker helped translate. Pt states she dislikes pork, but will eat everything else. Nursing noted intake: 100%. Current Diet Order/ Nutrition Support Mech Soft Chopped, GONZÁLEZ, thin liquid Pertinent Medications pepcid, synthroid Pertinent Labs 11/27: glucose 203, BUN 29, Cr 1.5, triglycerides 428, cholesterol 204 Nutritional Hx/Data Height 1.57 m Height (Calculated Centimeters) 157.5 Current Weight (lbs) 74.843 kg Weight (Calculated Kilograms) 74.8 Weight (Calculated Grams) 15909.7 [place] Body Weight 110 lb Body Mass Index (BMI) 30.2 Weight Status Obese GI Symptoms GI Symptoms None Last BM none noted Difficult in: None Food Allergies No Skin Integrity/Comment: intact Current %PO Good (75-100%) Estimated Nutritional Goals BEE in Kcals: Using Current wt Calories/Kcals/Kg 22-27 Kcals Calculated 5517-6213 Protein: Using Current wt Protein g/k.8-1 Protein Calculated 60-75 g Fluid: ml 2473-5855 (1 ml/kcal) Nutritional Problem 1. Problem Problem Altered nutrition related labs Etiology hx of CAD Signs/Symptoms: triglycerides 428, cholesterol 204 Malnutrition Alert Is there a minimum of two criteria No selected? Query Text:Check all the applicable criteria. A minimum of two criteria are recommended for diagnosis of either severe or non-severe malnutrition. Malnutrition Related to Morbid Obesity Malnutrition related to morbid obesity No Intervention/Recommendation Comments 1. Recommend to add cardiac diet to current diet order. Consider starting CCHO diet if glucose labs remain high. 2. Monitor PO intake, wt, labs and skin integrity 3. F/U as moderate risk in 3-5 days, 12/02-12/04 Expected Outcomes/Goals Expected Outcomes/Goals 1. PO intake to meet at least 75% of nutritional needs. 2. Wt stability, skin to remain intact, nutrition related labs to approach normal limits Reviewed by Yuridia Cam RD
--- NOTE | 2017-12-02 22:23 | Progress Notes ---
DATE: 12/02/2017 PSYCHIATRIC PROGRESS NOTE SUBJECTIVE: Staff was spoken to. The patient is interviewed. Mood is noted to be irritable. Insight and judgment are noted to be still impaired. Impulse control seems to be poor. Coping skills are also noted to be very poor. The patient has been having difficult time to cope with the stress. No side effects to the medications are noted. The patient has paranoid delusions. The patient is currently on olanzapine 7.5 mg and is able to tolerate. ASSESSMENT: The patient is still psychotic. PLAN: To continue the patient with the supportive therapy. Encouraged the patient to verbalize the concerns rather than to act out. JOB# [id number]
[2017-12-03] MEDS: Levothyroxine 0.075 Mg Tab PO SCH (06:38)
--- NOTE | 2017-12-03 13:10 | Infectious Disease Prog Note ---
Infectious Disease Subjective - Review of Systems Service Date: 12/03/17 Subjective: No new change, no fever. Infectious Disease Objective - Results Result Diagrams: 11/27/17 18:08 11/27/17 18:08 Recent Labs: Laboratory Last Values WBC 11.3 Th/cmm (4.8-10.8) H 11/27/17 18:08 RBC 4.41 Mil/cmm (3.80-5.20) 11/27/17 18:08 Hgb 12.9 gm/dL (12-16) 11/27/17 18:08 Hct 38.9 % (41.0-60) L 11/27/17 18:08 MCV 88.3 fl (81-100) 11/27/17 18:08 MCH 29.3 pg (27.0-31.0) 11/27/17 18:08 MCHC Differential 33.2 pg (28.0-36.0) 11/27/17 18:08 RDW 13.8 % (11.5-20.0) 11/27/17 18:08 Plt Count 275 Th/cmm (150-400) 11/27/17 18:08 MPV 7.6 fl 11/27/17 18:08 Neutrophils % 60.1 % (40.0-80.0) 11/27/17 18:08 Lymphocytes % 29.0 % (20.0-50.0) 11/27/17 18:08 Monocytes % 5.9 % (2.0-10.0) 11/27/17 18:08 Eosinophils % 4.4 % (0.0-5.0) 11/27/17 18:08 Basophils % 0.6 % (0.0-2.0) 11/27/17 18:08 Sodium 137 mEq/L (136-145) 11/27/17 18:08 Potassium 4.2 mEq/L (3.5-5.1) 11/27/17 18:08 Chloride 103 mEq/L (98-107) 11/27/17 18:08 Carbon Dioxide 25.1 mEq/L (21.0-31.0) 11/27/17 18:08 Anion Gap 13.1 (7.0-16.0) 11/27/17 18:08 BUN 29 mg/dL (7-25) H 11/27/17 18:08 Creatinine 1.5 mg/dL (0.6-1.2) H 11/27/17 18:08 Est GFR ( Amer) 44.4 ml/min (>90) 11/27/17 18:08 Est GFR (Non-Af Amer) 36.7 ml/min 11/27/17 18:08 BUN/Creatinine Ratio 19.3 11/27/17 18:08 Glucose 203 mg/dL (70-105) H 11/27/17 18:08 Calcium 9.7 mg/dL (8.6-10.3) 11/27/17 18:08 Total Bilirubin 0.2 mg/dL (0.3-1.0) L 11/27/17 18:08 AST 11 U/L (13-39) L 11/27/17 18:08 ALT 9 U/L (7-52) 11/27/17 18:08 Alkaline Phosphatase 92 U/L (34-104) 11/27/17 18:08 Troponin I < 0.01 ng/mL (0.01-0.05) L 11/27/17 18:08 Total Protein 7.7 gm/dL (6.0-8.3) 11/27/17 18:08 Albumin 4.1 gm/dL (3.7-5.3) 11/27/17 18:08 Globulin 3.6 gm/dL 11/27/17 18:08 Albumin/Globulin Ratio 1.1 (1.0-1.8) 11/27/17 18:08 Triglycerides 428 mg/dL (<150) H 11/27/17 18:08 Cholesterol 204 mg/dL (<200) H 11/27/17 18:08 LDL Cholesterol Direct 115 mg/dL (75-193) 11/27/17 18:08 HDL Cholesterol 36 mg/dL (23-92) 11/27/17 18:08 TSH 1.30 uIU/ml (0.34-5.60) 11/27/17 18:08 Urine Source CLEAN C 11/27/17 18:00 Urine Color YELLOW 11/27/17 18:00 Urine Clarity HAZY (CLEAR) 11/27/17 18:00 Urine pH 6.0 (4.6 - 8.0) 11/27/17 18:00 Ur Specific [place] 1.010 (1.005-1.030) 11/27/17 18:00 Urine Protein NEGATIVE mg/dL (NEGATIVE) 11/27/17 18:00 Urine Glucose (UA) NEGATIVE mg/dL (NEGATIVE) 11/27/17 18:00 Urine Ketones NEGATIVE mg/dL (NEGATIVE) 11/27/17 18:00 Urine Blood TRACE (NEGATIVE) 11/27/17 18:00 Urine Nitrate POSITIVE (NEGATIVE) H 11/27/17 18:00 Urine Bilirubin NEGATIVE (NEGATIVE) 11/27/17 18:00 Urine Urobilinogen 0.2 E.U./dL (0.2 - 1.0) 11/27/17 18:00 Ur Leukocyte Esterase LARGE (NEGATIVE) H 11/27/17 18:00 Urine RBC 2-5 /hpf (0-5) 11/27/17 18:00 Urine WBC 50-100 /hpf (0-5) H 11/27/17 18:00 Ur Epithelial Cells FEW /lpf (FEW) 11/27/17 18:00 Urine Bacteria 4+ /hpf (NONE SEEN) H 11/27/17 18:00 Valproic Acid 57.4 ug/mL (50.0-100.0) 11/27/17 18:08 - Physical Exam Vitals and I&O: Vital Signs Temp 96.8 F 12/03/17 05:57 Pulse 104 12/03/17 08:54 Resp 18 12/03/17 05:57 BP 136/77 12/03/17 08:54 Pulse Ox 96 12/03/17 05:57 Intake & Output 12/02/17 12/03/17 12/03/17 18:59 06:59 18:59 Intake Total 1600 420 Balance 1600 420 Intake: Oral 1600 420 Other: # Voids 4 2 # Bowel Movements 1 1 Active Medications: Current Medications Acetaminophen (Tylenol) 650 mg PO Q4HR PRN PRN Reason: Pain (Mild) Stop: 01/26/18 20:10 Divalproex Sodium (Depakote Dr) 250 mg PO BID [facility]; Protocol Stop: 01/27/18 08:59 Last Admin: 12/03/17 08:53 Dose: 250 mg Famotidine (Pepcid) 20 mg PO QDAC [facility] Stop: 01/27/18 07:29 Last Admin: 12/03/17 06:38 Dose: 20 mg Levofloxacin (Levaquin) 500 mg PO DAILY [facility] Stop: 01/28/18 16:29 Last Admin: 12/03/17 08:54 Dose: 500 mg Levothyroxine Sodium (Synthroid) 0.075 mg PO QDAC [facility] Stop: 01/27/18 07:29 Last Admin: 12/03/17 06:38 Dose: 0.075 mg Lorazepam (Ativan) 0.5 mg PO Q6HR PRN; Protocol PRN Reason: Agitation Stop: 01/26/18 20:21 Last Admin: 12/02/17 21:40 Dose: 0.5 mg Memantine (Namenda) 10 mg PO BID [facility] Stop: 01/27/18 08:59 Last Admin: 12/03/17 08:54 Dose: 10 mg Metoprolol Tartrate (Lopressor) 12.5 mg PO BID [facility] Stop: 01/27/18 08:59 Last Admin: 12/03/17 08:54 Dose: 12.5 mg Olanzapine (Zyprexa) 7.5 mg PO HS [facility]; Protocol Stop: 01/30/18 20:59 Last Admin: 12/02/17 21:40 Dose: 7.5 mg Terbutaline Sulfate (Brethine) 2.5 mg PO BID [facility] Stop: 01/27/18 08:59 Last Admin: 12/03/17 08:56 Dose: 2.5 mg Zolpidem Tartrate (Ambien) 5 mg PO HS PRN PRN Reason: Insomnia Stop: 01/26/18 20:19 Last Admin: 12/02/17 21:40 Dose: 5 mg General: no acute distress, well developed, well nourished HEENT: atraumatic, normocephalic, PERRLA, EOMI, moist mucous membrane Neck: supple, no thyromegaly Cardiovascular: S1S2, regular Lungs: clear to auscultation bilaterally, clear to percussion Abdomen: soft, no tender, no distended, no mass Extremities: no cyanosis, no clubbing, no edema Neurological: awake, alert, oriented Skin: intact - Procedures Procedures: Procedures Procedure Code Date INDIVID PSYCHOTHERAP NEC 94.39 04/06/12 OTHER GROUP THERAPY 94.44 06/28/13 RECREATIONAL THERAPY 93.81 12/09/11 Infectious Disease Assmt/Plan - Assessment Assessment: 1. UTI. 2. Psychosis. 1. UTI. 2. Psychosis. Plan: Continue Levaquin. - Plan Plan: continue levaquin. Nutritional Asmnt/Malnutr-PDOC - Dietary Evaluation Malnutrition Findings (Please click <Entered> for more info): Nutritional Asmnt/Malnutrition Start: 11/29/17 13: 51 Text: Status: Complete Freq: Protocol: Document 11/29/17 13:51 NELLI (Rec: 11/29/17 14:12 NELLI KIERANKellie) Nutritional Asmnt/Malnutrition Patient General Information Nutritional Screening High Risk Diagnosis increased agitation Pertinent Medical Hx/Surgical Hx CAD, asthma, COPD, thyroid disorder, arthritis, dementia, schizophrenia Subjective Information Pt eating lunch in room and speaking w/ health and social care teacher at time of visit. Icelandic speaking; health and social care teacher helped translate. Pt states she dislikes pork, but will eat everything else. Nursing noted intake: 100%. Current Diet Order/ Nutrition Support Mech Soft Chopped, GONZÁLEZ, thin liquid Pertinent Medications pepcid, synthroid Pertinent Labs 11/27: glucose 203, BUN 29, Cr 1.5, triglycerides 428, cholesterol 204 Nutritional Hx/Data Height 1.57 m Height (Calculated Centimeters) 157.5 Current Weight (lbs) 74.843 kg Weight (Calculated Kilograms) 74.8 Weight (Calculated Grams) 01099.7 [place] Body Weight 110 lb Body Mass Index (BMI) 30.2 Weight Status Obese GI Symptoms GI Symptoms None Last BM none noted Difficult in: None Food Allergies No Skin Integrity/Comment: intact Current %PO Good (75-100%) Estimated Nutritional Goals BEE in Kcals: Using Current wt Calories/Kcals/Kg 22-27 Kcals Calculated 1964-6734 Protein: Using Current wt Protein g/k.8-1 Protein Calculated 60-75 g Fluid: ml 3515-8974 (1 ml/kcal) Nutritional Problem 1. Problem Problem Altered nutrition related labs Etiology hx of CAD Signs/Symptoms: triglycerides 428, cholesterol 204 Malnutrition Alert Is there a minimum of two criteria No selected? Query Text:Check all the applicable criteria. A minimum of two criteria are recommended for diagnosis of either severe or non-severe malnutrition. Malnutrition Related to Morbid Obesity Malnutrition related to morbid obesity No Intervention/Recommendation Comments 1. Recommend to add cardiac diet to current diet order. Consider starting CCHO diet if glucose labs remain high. 2. Monitor PO intake, wt, labs and skin integrity 3. F/U as moderate risk in 3-5 days, 12/02-12/04 Expected Outcomes/Goals Expected Outcomes/Goals 1. PO intake to meet at least 75% of nutritional needs. 2. Wt stability, skin to remain intact, nutrition related labs to approach normal limits Reviewed by Yuridia Cam RD
--- NOTE | 2017-12-03 13:53 | Internal Medicine Prog Note ---
Internal Medicine Subjective - Subjective Service Date: 12/03/17 Patient is:: awake, other Per staff patient has:: tolerating meds Internal Medicine Objective - Results Result Diagrams: 11/27/17 18:08 11/27/17 18:08 Recent Labs: Laboratory Last Values WBC 11.3 Th/cmm (4.8-10.8) H 11/27/17 18:08 RBC 4.41 Mil/cmm (3.80-5.20) 11/27/17 18:08 Hgb 12.9 gm/dL (12-16) 11/27/17 18:08 Hct 38.9 % (41.0-60) L 11/27/17 18:08 MCV 88.3 fl (81-100) 11/27/17 18:08 MCH 29.3 pg (27.0-31.0) 11/27/17 18:08 MCHC Differential 33.2 pg (28.0-36.0) 11/27/17 18:08 RDW 13.8 % (11.5-20.0) 11/27/17 18:08 Plt Count 275 Th/cmm (150-400) 11/27/17 18:08 MPV 7.6 fl 11/27/17 18:08 Neutrophils % 60.1 % (40.0-80.0) 11/27/17 18:08 Lymphocytes % 29.0 % (20.0-50.0) 11/27/17 18:08 Monocytes % 5.9 % (2.0-10.0) 11/27/17 18:08 Eosinophils % 4.4 % (0.0-5.0) 11/27/17 18:08 Basophils % 0.6 % (0.0-2.0) 11/27/17 18:08 Sodium 137 mEq/L (136-145) 11/27/17 18:08 Potassium 4.2 mEq/L (3.5-5.1) 11/27/17 18:08 Chloride 103 mEq/L (98-107) 11/27/17 18:08 Carbon Dioxide 25.1 mEq/L (21.0-31.0) 11/27/17 18:08 Anion Gap 13.1 (7.0-16.0) 11/27/17 18:08 BUN 29 mg/dL (7-25) H 11/27/17 18:08 Creatinine 1.5 mg/dL (0.6-1.2) H 11/27/17 18:08 Est GFR ( Amer) 44.4 ml/min (>90) 11/27/17 18:08 Est GFR (Non-Af Amer) 36.7 ml/min 11/27/17 18:08 BUN/Creatinine Ratio 19.3 11/27/17 18:08 Glucose 203 mg/dL (70-105) H 11/27/17 18:08 Calcium 9.7 mg/dL (8.6-10.3) 11/27/17 18:08 Total Bilirubin 0.2 mg/dL (0.3-1.0) L 11/27/17 18:08 AST 11 U/L (13-39) L 11/27/17 18:08 ALT 9 U/L (7-52) 11/27/17 18:08 Alkaline Phosphatase 92 U/L (34-104) 11/27/17 18:08 Troponin I < 0.01 ng/mL (0.01-0.05) L 11/27/17 18:08 Total Protein 7.7 gm/dL (6.0-8.3) 11/27/17 18:08 Albumin 4.1 gm/dL (3.7-5.3) 11/27/17 18:08 Globulin 3.6 gm/dL 11/27/17 18:08 Albumin/Globulin Ratio 1.1 (1.0-1.8) 11/27/17 18:08 Triglycerides 428 mg/dL (<150) H 11/27/17 18:08 Cholesterol 204 mg/dL (<200) H 11/27/17 18:08 LDL Cholesterol Direct 115 mg/dL (75-193) 11/27/17 18:08 HDL Cholesterol 36 mg/dL (23-92) 11/27/17 18:08 TSH 1.30 uIU/ml (0.34-5.60) 11/27/17 18:08 Urine Source CLEAN C 11/27/17 18:00 Urine Color YELLOW 11/27/17 18:00 Urine Clarity HAZY (CLEAR) 11/27/17 18:00 Urine pH 6.0 (4.6 - 8.0) 11/27/17 18:00 Ur Specific [place] 1.010 (1.005-1.030) 11/27/17 18:00 Urine Protein NEGATIVE mg/dL (NEGATIVE) 11/27/17 18:00 Urine Glucose (UA) NEGATIVE mg/dL (NEGATIVE) 11/27/17 18:00 Urine Ketones NEGATIVE mg/dL (NEGATIVE) 11/27/17 18:00 Urine Blood TRACE (NEGATIVE) 11/27/17 18:00 Urine Nitrate POSITIVE (NEGATIVE) H 11/27/17 18:00 Urine Bilirubin NEGATIVE (NEGATIVE) 11/27/17 18:00 Urine Urobilinogen 0.2 E.U./dL (0.2 - 1.0) 11/27/17 18:00 Ur Leukocyte Esterase LARGE (NEGATIVE) H 11/27/17 18:00 Urine RBC 2-5 /hpf (0-5) 11/27/17 18:00 Urine WBC 50-100 /hpf (0-5) H 11/27/17 18:00 Ur Epithelial Cells FEW /lpf (FEW) 11/27/17 18:00 Urine Bacteria 4+ /hpf (NONE SEEN) H 11/27/17 18:00 Valproic Acid 57.4 ug/mL (50.0-100.0) 11/27/17 18:08 - Physical Exam Vitals and I&O: Vital Signs Temp 96.8 F 12/03/17 05:57 Pulse 104 12/03/17 08:54 Resp 18 12/03/17 05:57 BP 136/77 12/03/17 08:54 Pulse Ox 96 12/03/17 05:57 Intake & Output 12/02/17 12/03/17 12/03/17 18:59 06:59 18:59 Intake Total 1600 420 Balance 1600 420 Intake: Oral 1600 420 Other: # Voids 4 2 # Bowel Movements 1 1 Active Medications: Current Medications Acetaminophen (Tylenol) 650 mg PO Q4HR PRN PRN Reason: Pain (Mild) Stop: 01/26/18 20:10 Divalproex Sodium (Depakote Dr) 250 mg PO BID [facility]; Protocol Stop: 01/27/18 08:59 Last Admin: 12/03/17 08:53 Dose: 250 mg Famotidine (Pepcid) 20 mg PO QDAC [facility] Stop: 01/27/18 07:29 Last Admin: 12/03/17 06:38 Dose: 20 mg Levofloxacin (Levaquin) 500 mg PO DAILY [facility] Stop: 01/28/18 16:29 Last Admin: 12/03/17 08:54 Dose: 500 mg Levothyroxine Sodium (Synthroid) 0.075 mg PO QDAC [facility] Stop: 01/27/18 07:29 Last Admin: 12/03/17 06:38 Dose: 0.075 mg Lorazepam (Ativan) 0.5 mg PO Q6HR PRN; Protocol PRN Reason: Agitation Stop: 01/26/18 20:21 Last Admin: 12/02/17 21:40 Dose: 0.5 mg Memantine (Namenda) 10 mg PO BID [facility] Stop: 01/27/18 08:59 Last Admin: 12/03/17 08:54 Dose: 10 mg Metoprolol Tartrate (Lopressor) 12.5 mg PO BID [facility] Stop: 01/27/18 08:59 Last Admin: 12/03/17 08:54 Dose: 12.5 mg Olanzapine (Zyprexa) 7.5 mg PO HS [facility]; Protocol Stop: 01/30/18 20:59 Last Admin: 12/02/17 21:40 Dose: 7.5 mg Terbutaline Sulfate (Brethine) 2.5 mg PO BID [facility] Stop: 01/27/18 08:59 Last Admin: 12/03/17 08:56 Dose: 2.5 mg Zolpidem Tartrate (Ambien) 5 mg PO HS PRN PRN Reason: Insomnia Stop: 01/26/18 20:19 Last Admin: 12/02/17 21:40 Dose: 5 mg General: alert HEENT: NC/AT, PERRLA Neck: Supple Lungs: CTAB Cardiovascular: RRR, Normal S1, Normal S2, without murmur Abdomen: soft, non-tender, non-distended, positive bowel sound Neurological: alert - Procedures Procedures: Procedures Procedure Code Date INDIVID PSYCHOTHERAP NEC 94.39 04/06/12 OTHER GROUP THERAPY 94.44 06/28/13 RECREATIONAL THERAPY 93.81 12/09/11 Internal Medicine Assmt/Plan - Assessment Assessment: acute psychosis acute uti right axis deviation on ekg - Plan Plan: fall precautions continue current plan of care Nutritional Asmnt/Malnutr-PDOC - Dietary Evaluation Malnutrition Findings (Please click <Entered> for more info): Nutritional Asmnt/Malnutrition Start: 11/29/17 13: 51 Text: Status: Complete Freq: Protocol: Document 11/29/17 13:51 NELLI (Rec: 11/29/17 14:12 NELLI GENTILE) Nutritional Asmnt/Malnutrition Patient General Information Nutritional Screening High Risk Diagnosis increased agitation Pertinent Medical Hx/Surgical Hx CAD, asthma, COPD, thyroid disorder, arthritis, dementia, schizophrenia Subjective Information Pt eating lunch in room and speaking w/ professor of social work at time of visit. Latvian speaking; professor of social work helped translate. Pt states she dislikes pork, but will eat everything else. Nursing noted intake: 100%. Current Diet Order/ Nutrition Support Mech Soft Chopped, GONZÁLEZ, thin liquid Pertinent Medications pepcid, synthroid Pertinent Labs 11/27: glucose 203, BUN 29, Cr 1.5, triglycerides 428, cholesterol 204 Nutritional Hx/Data Height 5 ft 2 in Height (Calculated Centimeters) 157.5 Current Weight (lbs) 165 lb Weight (Calculated Kilograms) 74.8 Weight (Calculated Grams) 84376.7 [place] Body Weight 110 lb Body Mass Index (BMI) 30.2 Weight Status Obese GI Symptoms GI Symptoms None Last BM none noted Difficult in: None Food Allergies No Skin Integrity/Comment: intact Current %PO Good (75-100%) Estimated Nutritional Goals BEE in Kcals: Using Current wt Calories/Kcals/Kg 22-27 Kcals Calculated 7411-4163 Protein: Using Current wt Protein g/k.8-1 Protein Calculated 60-75 g Fluid: ml 2160-4784 (1 ml/kcal) Nutritional Problem 1. Problem Problem Altered nutrition related labs Etiology hx of CAD Signs/Symptoms: triglycerides 428, cholesterol 204 Malnutrition Alert Is there a minimum of two criteria No selected? Query Text:Check all the applicable criteria. A minimum of two criteria are recommended for diagnosis of either severe or non-severe malnutrition. Malnutrition Related to Morbid Obesity Malnutrition related to morbid obesity No Intervention/Recommendation Comments 1. Recommend to add cardiac diet to current diet order. Consider starting CCHO diet if glucose labs remain high. 2. Monitor PO intake, wt, labs and skin integrity 3. F/U as moderate risk in 3-5 days, 12/02-12/04 Expected Outcomes/Goals Expected Outcomes/Goals 1. PO intake to meet at least 75% of nutritional needs. 2. Wt stability, skin to remain intact, nutrition related labs to approach normal limits Reviewed by Yuridia Cam RD
--- NOTE | 2017-12-04 06:13 | Progress Notes ---
DATE: 12/03/2017 PSYCHIATRIC PROGRESS NOTE SUBJECTIVE: Staff was spoken to. The patient is interviewed. Mood is noted to be anxious. Affect is appropriate. The patient has paranoia, but denies any command hallucinations. No side effects to the medications are noted at this time. ASSESSMENT: The patient is stabilizing. PLAN: To continue the patient with the supportive therapy. I encouraged the patient to verbalize the concerns. The patient is going to be discharged back to the senior care facility for further followup. JOB# [id number]
== END 2017-12-03 17:00 | DRG 885 ==
LOC: ER 17:29 → GERO2 19:10
PROVIDERS: ADMIT Psychiatry & Neurology Psychiatry; ATTEND Psychiatry & Neurology Psychiatry
DX: F29 Unspecified psychosis not due to a substance or known physiological condition (principal); N39.0 Urinary tract infection, site not specified; I25.10 Atherosclerotic heart disease of native coronary artery without angina pectoris; J44.9 Chronic obstructive pulmonary disease, unspecified; M19.90 Unspecified osteoarthritis, unspecified site; F03.90 Unspecified dementia, unspecified severity, without behavioral disturbance, psychotic disturbance, mood disturbance, and anxiety; Z83.3 Family history of diabetes mellitus
CPT/HCPCS: 36415-UA; 71045-TC; 80053-TC; 80061-TC; 80164-TC; 81001-TC; 83036-90; 84443-TC; 84484-TC; 85025-TC; 87086-90; 93005; J0696; J7051